=== PATIENT | female | born 1980 | race Hispanic/Latino ===

== ENCOUNTER 2021-06-21 16:28 | Outpatient (CLI) | payer OTHER ==
[2021-06-22 00:51] LABS: SARS-CoV-2 PCR by NAA Not Detected (NotDetected)
== END 2021-06-21 16:29 | disposition home or self-care (01) ==
LOC: CSHLAB 16:28
PROVIDERS: ATTEND Family Medicine
DX: Z20.822 Contact with and (suspected) exposure to COVID-19 (principal)
CPT/HCPCS: U0003; U0005

== ENCOUNTER 2021-06-25 03:11 | Inpatient (IN) | payer MEDICAID, OTHER, SELFPAY ==
[2021-06-25 03:40] VITALS: BMI 25.7
[2021-06-25] MEDS ORDERED: hydrALAZINE 20 MG/ML VIAL SLOW IVP PRN ×3 (04:12→15:49)
[2021-06-25 04:48] LABS: #Monocytes 0.7 10x3/uL (0.0-1.1); #Neutrophils 5.8 10x3/uL (1.5-8.4); %Basophils 0.2 % (0.0-2.0); %Eosinophils 0.5 % (0.0-6.0); %Lymphocytes 21.4 % (18.0-47.0); %Monocytes 8.5 % (0.0-10.0); %Neutrophils 69.3 % (40.0-75.0); Hemoglobin 10.8 g/dL (12.0-15.5); Mean Corpuscular HGB CONC 32.2 g/dL (32.0-36.0); Mean Corpuscular Hemoglobin 30.2 pg (27.0-33.0); Mean Corpuscular Volume 93.6 fl (81.6-98.3); Mean Platelet Volume 12.8 fl (7.4-10.4); Platelet Count 170 10x3/uL (150-450); RBC Distribution Width 13.7 % (11.5-14.5); Red Blood Cell (RBC) Count 3.58 10x6/uL (3.90-5.03); White Blood Cell (WBC) Count 8.3 10x3/uL (3.5-10.5)
[2021-06-25 04:58] LABS: ALT (SGPT) 11 U/L (8-55); AST (SGOT) 19 U/L (5-34); Albumin 3.3 g/dL (3.5-5.0); Alkaline Phosphatase 167 U/L (40-110); Anion Gap 13 mmol/L (10-20); BUN (Urea Nitrogen) 6 mg/dL (7.0-18.7); Bilirubin, Total 0.3 mg/dL (0.2-1.2); Calc. Creatinine Clearance 130 mL/min (70-130); Calcium 8.8 mg/dL (7.8-10.44); Carbon Dioxide 19 mmol/L (22-29); Chloride 108 mmol/L (98-107); Glucose 90 mg/dL (70-105); Potassium 3.8 mmol/L (3.5-5.1); Protein, Total 7.3 g/dL (6.0-8.3); Sodium 136 mmol/L (136-145)
[2021-06-25] MEDS ORDERED: Promethazine HCl 25 MG/ML VIAL IM PRN ×2 (06:48→08:25)
[2021-06-25] MEDS ORDERED: Ondansetron PF 4 MG/2 ML Vial IVP PRN ×3 (06:48→15:49)
[2021-06-25] MEDS ORDERED: Acetaminophen 500 MG TAB PO PRN (06:48)
[2021-06-25] MEDS ORDERED: Calcium Gluc 4.6 MEQ/10 ML (100 MG/ML) SLOW IVP PRN (06:53)
[2021-06-25] MEDS ORDERED: Diphenoxylate HCl/Atropine Tablet PO PRN (06:54)
[2021-06-25] MEDS ORDERED: Carboprost 250 MCG/ML AMP IM PRN (06:54)
[2021-06-25] MEDS ORDERED: Ibuprofen 800 MG TAB PO PRN (06:54)
[2021-06-25] MEDS ORDERED: Lidocaine 1% (PF) 30 ML VIAL SC PRN (06:54)
[2021-06-25] MEDS ORDERED: Misoprostol 200 MCG TAB PR PRN (06:54)
[2021-06-25 06:58] LABS: Creatinine, Urine 144.19 mg/dL (47-110)
[2021-06-25] MEDS ORDERED: Magnesium Sulfate 20 GM/WATER 500 ML BAG IVPB SCH (07:00)
[2021-06-25] MEDS ORDERED: NS w/ Oxytocin 30 units 500 ML IV SCH ×2 (07:00→12:45)
[2021-06-25] MEDS: Lactated Ringer's 1,000 ML IV SCH ×2 (07:03→20:21)
[2021-06-25] MEDS: Magnesium Sulfate 20 gm/500 ml 20 GM/500 ML BAG IVPB SCH ×2 (07:10→15:11)
[2021-06-25] MEDS ORDERED: Fentanyl 2 mcg/Bup 0.1% Cadd 0 ML ONE (07:37)
[2021-06-25 08:00] LABS: Hep B Surf Ag Non-Reactive S/CO (NonReactive); Syphilis Antibody Nonreactive (Nonreactive); Syphilis Antibody Index 0.09 S/CO (<1.00 Non-Reactive)
[2021-06-25] MEDS ORDERED: Bupivacaine/Epinephrine 0.25% 30 ML VIAL ONE (08:00)
[2021-06-25] MEDS ORDERED: ePHEDrine Sulfate 50 MG/10 ML VIAL ONE (08:00)
[2021-06-25 08:01] LABS: HBSAg Index 0.16 S/CO (0-0.99)
[2021-06-25] MEDS ORDERED: Hydrocerin (Eucerin) Cream 120 gm Jar TOP PRN (08:25)
[2021-06-25] MEDS ORDERED: Acetaminophen 325 MG TAB PO PRN (08:25)
[2021-06-25] MEDS ORDERED: ePHEDrine Sulfate 50 MG/10 ML VIAL SLOW IVP PRN (08:25)
[2021-06-25] MEDS ORDERED: Lactated Ringer's 500 ML IV PRN (08:25)
[2021-06-25] MEDS ORDERED: diphenhydrAMINE 50 MG/ML VIAL IVP PRN (08:25)
[2021-06-25] MEDS ORDERED: Naloxone HCl 0.4 mg/ml Vial IVP PRN ×2 (08:25)
[2021-06-25] MEDS ORDERED: Fentanyl 2 mcg/Bupivacaine 0.1% Cassette 100 ML EPIDURAL SCH (08:30)
[2021-06-25] MEDS ORDERED: Communication Order-Pharmacy FS SCH (08:30)
[2021-06-25] MEDS ORDERED: Fentanyl 2 mcg/Bup 0.1% Cadd 100 ML ONE (15:09)
[2021-06-25] MEDS ORDERED: diphenhydrAMINE 25 MG CAP PO PRN (15:49)
[2021-06-25] MEDS ORDERED: Bisacodyl 10 MG SUPP PR PRN (15:49)
[2021-06-25] MEDS ORDERED: Benzocaine-Menthol 82.5 ML CAN TOP PRN (15:49)
[2021-06-25] MEDS ORDERED: Boostrix 0.5 ML (Tdap) VIAL IM ONE (15:49)
[2021-06-25] MEDS ORDERED: Preparation H Ointment 28 GM TUBE PR PRN (15:49)
[2021-06-25] MEDS ORDERED: Milk Of Magnesia 30 ML UDCUP PO PRN (15:49)
[2021-06-25] MEDS ORDERED: HYDROcodone/Acetaminophen 5/325 mg Tablet PO PRN ×2 (15:49)
[2021-06-25 16:26] LABS: RapidComm Collect By CBN
[2021-06-25 16:31] LABS: RapidComm Collect By CBN; pH (Cord, venous) 7.306 (7.250-7.350)
[2021-06-25] MEDS: Ibuprofen 800 MG TAB PO SCH (17:17)
[2021-06-26] MEDS: Magnesium Sulfate 20 gm/500 ml 20 GM/500 ML BAG IVPB SCH ×2 (01:27→11:52)
[2021-06-26] MEDS: Lactated Ringer's 1,000 ML IV SCH ×3 (01:28→20:05)
[2021-06-26] MEDS: Docusate 100 MG CAP PO SCH ×3 (01:29→21:25)
[2021-06-26 05:41] LABS: #Monocytes 0.7 10x3/uL (0.0-1.1); #Neutrophils 12.2 10x3/uL (1.5-8.4); %Basophils 0.2 % (0.0-2.0); %Eosinophils 0.1 % (0.0-6.0); %Lymphocytes 11.7 % (18.0-47.0); %Monocytes 4.9 % (0.0-10.0); %Neutrophils 82.7 % (40.0-75.0); Hemoglobin 9.8 g/dL (12.0-15.5); Mean Corpuscular HGB CONC 33.1 g/dL (32.0-36.0); Mean Corpuscular Hemoglobin 30.5 pg (27.0-33.0); Mean Corpuscular Volume 92.2 fl (81.6-98.3); Mean Platelet Volume 12.9 fl (7.4-10.4); Platelet Count 154 10x3/uL (150-450); Red Blood Cell (RBC) Count 3.21 10x6/uL (3.90-5.03); White Blood Cell (WBC) Count 14.8 10x3/uL (3.5-10.5)
[2021-06-26] MEDS: Ibuprofen 800 MG TAB PO SCH ×3 (06:19→21:25)
[2021-06-26 07:48] LABS: Magnesium 6.4 mg/dL (1.6-2.6)
[2021-06-26] MEDS: Prenatal Vitamin 1 TAB PO SCH (11:53)
[2021-06-26] MEDS: Ferrous Sulfate 325 MG TAB PO SCH (11:53)
[2021-06-27] MEDS: Ibuprofen 800 MG TAB PO SCH ×2 (05:42→15:36)
[2021-06-27] MEDS: Docusate 100 MG CAP PO SCH (09:01)
[2021-06-27] MEDS: Prenatal Vitamin 1 TAB PO SCH (09:01)
[2021-06-27] MEDS: Lactated Ringer's 1,000 ML IV SCH ×2 (09:01→16:16)
[2021-06-27] MEDS: Ferrous Sulfate 325 MG TAB PO SCH (09:01)
[2021-06-27 14:21] VITALS: TEMP 98.1
[2021-06-27 16:17] VITALS: BP 147/62
== END 2021-06-27 17:05 | disposition home or self-care (01) | DRG 805 ==
LOC: CSHLD/OP 03:11 → CSHLD 16:21 → CSHPP 06-26 17:09
PROVIDERS: ADMIT Obstetrics & Gynecology; ATTEND Obstetrics & Gynecology
PROC: 10E0XZZ Delivery of Products of Conception, External Approach (ICD-10-PCS; principal; 2021-06-25)
PROC: 10D17Z9 Manual Extraction of Products of Conception, Retained, Via Natural or Artificial Opening (ICD-10-PCS; 2021-06-25)
PROC: 10907ZC Drainage of Amniotic Fluid, Therapeutic from Products of Conception, Via Natural or Artificial Opening (ICD-10-PCS; 2021-06-25)
PROC: 10H07YZ Insertion of Other Device into Products of Conception, Via Natural or Artificial Opening (ICD-10-PCS; 2021-06-25)
PROC: 3E033VJ Introduction of Other Hormone into Peripheral Vein, Percutaneous Approach (ICD-10-PCS; 2021-06-25)
PROC: 0HQ9XZZ Repair Perineum Skin, External Approach (ICD-10-PCS; 2021-06-25)
DX: O36.5930 Maternal care for other known or suspected poor fetal growth, third trimester, not applicable or unspecified (principal); O45.8X3 Other premature separation of placenta, third trimester; Z37.0 Single live birth; O99.42 Diseases of the circulatory system complicating childbirth; O99.354 Diseases of the nervous system complicating childbirth; Z3A.38 38 weeks gestation of pregnancy; D64.9 Anemia, unspecified; O99.02 Anemia complicating childbirth; O76 Abnormality in fetal heart rate and rhythm complicating labor and delivery; O14.14 Severe pre-eclampsia complicating childbirth; O70.0 First degree perineal laceration during delivery; O69.81X0 Labor and delivery complicated by cord around neck, without compression, not applicable or unspecified; O73.0 Retained placenta without hemorrhage; O43.893 Other placental disorders, third trimester; O99.344 Other mental disorders complicating childbirth; F32.9 Major depressive disorder, single episode, unspecified; G47.00 Insomnia, unspecified; D39.8 Neoplasm of uncertain behavior of other specified female genital organs; I95.9 Hypotension, unspecified
CPT/HCPCS: 36415; 51702; 80053; 82570; 82805; 83735; 84156; 85025; 86780; 86850; 86900; 86901; 87340; 88307; 99285; J2405; J2590; J3475; J7120